=== PATIENT | male | born 1990 | race Hispanic/Latino ===

== ENCOUNTER 2018-05-29 17:18 | Emergency (ER) | payer SELFPAY ==
[2018-05-29 17:56] LABS: #Basophils 0.1 thou/uL (0.0-0.2); #Eosinphils 0.1 thou/uL (0.0-0.7); #Lymphocytes 2.1 thou/uL (1.20-3.40); #Monocytes 0.7 thou/uL (0.11-0.59); #Neutrophils 6.5 thou/uL (1.40-6.50); %Basophils 0.6 % (0.0-1.0); %Eosinophils 0.6 % (0.0-10.0); %Lymphocytes 22.4 % (21.0-51.0); %Monocytes 7.5 % (0.0-10.0); %Neutrophils 68.9 % (42.0-75.0); Hemoglobin 15.5 g/dL (14.0-18.0); Mean Corpuscular HGB CONC 34.7 g/dL (32.0-36.0); Mean Corpuscular Hemoglobin 31.5 pg (27.0-31.0); Mean Corpuscular Volume 90.9 fL (78.0-98.0); Mean Platelet Volume 7.6 fL (7.4-10.4); Platelet Count 211 thou/uL (130-400); RBC Distribution Width 11.8 % (11.5-14.5); White Blood Cell (WBC) Count 9.5 thou/uL (4.8-10.8)
[2018-05-29 18:14] LABS: ALT (SGPT) 22 U/L (8-55); AST (SGOT) 23 U/L (5-34); Albumin 4.5 g/dL (3.5-5.0); Alkaline Phosphatase 94 U/L (40-150); Anion Gap 14 mmol/L (10-20); BUN (Urea Nitrogen) 11 mg/dL (8.9-20.6); Bilirubin, Total 0.9 mg/dL (0.2-1.2); Calc. Creatinine Clearance 0 mL/min (70-130); Calcium 9.7 mg/dL (7.8-10.44); Carbon Dioxide 25 mmol/L (22-29); Chloride 103 mmol/L (98-107); Estimated GFR-MDRD Greater than 90; Globulin 3.6 g/dL (2.4-3.5); Glucose 94 mg/dL (70-105); Lipase 61 U/L (8-78); Potassium 3.5 mmol/L (3.5-5.1); Protein, Total 8.1 g/dL (6.0-8.3); Sodium 138 mmol/L (136-145)
[2018-05-29 18:57] LABS: Bilirubin Negative (Negative); Blood, Urine Moderate (Negative); Clarity CLEAR (Clear); Glucose, Urine (Dipstick) Negative (Negative); Leukocyte Negative (Negative); Nitrite Negative (Negative); Protein, Urine (Dipstick) Negative (Neg-Trace); Urobilinogen 0.2 mg/dL (0.2-1.0); pH, Urine 5.5 (5.0-9.0)
[2018-05-29 18:59] LABS: Bacteria/HPF None Seen HPF (None Seen); Hyaline Casts/LPF 0-3 HYALINE CAST LPF (0-3 Hyaline); RBC/HPF 0-3 HPF (0-3); Squamous Epithelial None Seen HPF (0-3); WBC/HPF None Seen HPF (0-3)
--- NOTE | 2018-05-29 20:07 | CT ---
ABDOMEN CT WITHOUT CONTRAST PELVIC CT WITHOUT CONTRAST 05/29/18 HISTORY: Left flank pain. COMPARISON: None. TECHNIQUE: An abdomen and pelvic CT are performed without IV or oral contrast. Coronal reformatted images are aceves bmitted for interpretation. FINDINGS: ABDOMEN CT: Right lung base is clear. Ill-defined nodule in the left lung base measuring 7 mm. Heart size is nor mal. Aorta is unremarkable. Limited evaluation of the solid organs by lack of IV contrast. No gastrohepatic, retrocrural or perip ortal lymphadenopathy. No mesenteric mass, lymphadenopathy, free air of free fluid. Limited evaluation of the alimentary canal due to lack of oral contrast. No evidence of bowel obstruc tion. Ileocecal junction is normal. Normal caliber appendix. Scattered fecal material in a nondistend ed, nondilated colon. There are nonobstructing calcifications in the right renal pelvis measuring 2 to 3 mm. Punctate nonob structing calculus measuring 1 mm in the lower pole left kidney. Bilaterally, no perinephric fat stra nding. No evidence of hydronephrosis. Mild dilatation and periureteral fat stranding involving the le ft ureter. There is no calcification in the left ureter. There is a calcification in the left aspect of the urinary bladder measuring 2 mm suggesting a recently passed left ureteral calculus. Right uret er is unremarkable. Contracted gallbladder due to nonfasting state. PELVIC CT: No mass, lymphadenopathy, free air or free fluid. Calcification in the left aspect of the urinary reyes dder. No lytic or blastic lesions in the osseous structures. IMPRESSION: 1. Bilateral nonobstructing intrarenal calculi. 2. Mild left sided obstructive uropathy predominantly involving the left ureter secondary to rec ently passed calculus which is now in the left aspect of the bladder. POS: WILLIAM
== END 2018-05-29 21:00 | disposition home or self-care (01) ==
LOC: ERS 17:18
DX: N20.1 Calculus of ureter (principal); N20.0 Calculus of kidney; Z87.891 Personal history of nicotine dependence
CPT/HCPCS: 74176; 80053; 81003; 81015; 83690; 85025